=== PATIENT | female | born 1945 | race Two or more races ===

== ENCOUNTER 2019-11-24 09:15 | Inpatient (IN) | payer OTHER ==
[~2019-11-24] VITALS: Ht 160 cm; Wt 72.1 kg
[2019-11-24] MEDS ORDERED: SYNTHROID88 MCG PO (13:47)
[2019-11-24] MEDS ORDERED: COZAAR100 MG PO (13:47)
[2019-11-24] MEDS ORDERED: IRON236 MG PO (13:48)
[2019-11-24] MEDS ORDERED: LIPITOR40 MG PO (13:48)
[2019-11-24] MEDS ORDERED: METFORMIN HCL1000 M2 PO (13:49)
[2019-12-07] MEDS ORDERED: NEXIUM 24HR20 M1 PO (08:31)
[2019-12-07] MEDS ORDERED: SIMETHICONE80 MG PO (08:32)
[2019-12-07] MEDS ORDERED: INTESTINEX680 M1 PO (08:32)
[2019-12-07] MEDS ORDERED: ULTRACET PO (08:32)
[2019-12-07] MEDS ORDERED: LEVSIN/SL0.125 MG SL (08:34)
== END 2019-12-07 12:30 | DRG 330 ==
LOC: ADM 09:15 → EDSTATUS 11:00 → O/R 12-01 10:00 → SURG 12-01 10:00 → SURH 12-01 11:00 → SURG 12-01 18:23
PROVIDERS: ADMIT Surgery; ATTEND Surgery
PROC: 07TD4ZZ Resection of Aortic Lymphatic, Percutaneous Endoscopic Approach (ICD-10-PCS; 2019-12-01)
PROC: 0DTF4ZZ Resection of Right Large Intestine, Percutaneous Endoscopic Approach (ICD-10-PCS; principal; 2019-12-01 11:00)
DX: C18.2 Malignant neoplasm of ascending colon (principal); K91.89 Other postprocedural complications and disorders of digestive system; K56.7 Ileus, unspecified; D50.9 Iron deficiency anemia, unspecified; R59.0 Localized enlarged lymph nodes; Z20.828 Contact with and (suspected) exposure to other viral communicable diseases; I10 Essential (primary) hypertension

== ENCOUNTER 2020-12-07 06:41 | Day surgery (SDC) | payer OTHER ==
[~2020-12-07 06:41] MED LIST: COZAAR100 MG PO; INTESTINEX680 M1 PO; IRON236 MG PO; LEVSIN/SL0.125 MG SL; LIPITOR40 MG PO; METFORMIN HCL1000 M2 PO; NEXIUM 24HR20 M1 PO; SIMETHICONE80 MG PO; SYNTHROID88 MCG PO; ULTRACET PO
== END 2020-12-07 11:20 | disposition home or self-care (01) ==
LOC: AMB-ENDOS 06:41 → CIR.AMB 14:00
PROVIDERS: ATTEND Surgery
DX: K62.89 Other specified diseases of anus and rectum (principal); Z20.822 Contact with and (suspected) exposure to COVID-19